=== PATIENT | male | born 1960 | race Caucasian/White ===

== ENCOUNTER → 2024-02-25 10:28 | Outpatient (REF) | payer MEDICARE, SELFPAY | LOC: MRI 3T 10:28 | PROVIDERS: ATTENDING PHYSICIAN Urology; FAMILY PHYSICIAN Nurse Practitioner Family | DX: R97.20 Elevated prostate specific antigen [PSA] (principal) | CPT/HCPCS: 72197; A9575 ==

== ENCOUNTER 2024-08-11 20:57 | Inpatient (IN) | payer MEDICARE, SELFPAY ==
[2024-08-11] VITALS (9 sets, daily range): BP systolic 118–138; BP diastolic 66–81; BMI 27.1
[2024-08-11 16:10] LABS: % Basophils 0.4 % (0-2); % Eosinophils 0.1 % (0-6); % Immature Granulocytes 0.5 % (0-0.5); % Lymphocytes 8.3 % (20.5-51.1); % Monocytes 4.8 % (1.7-9.3); % Neutrophils 85.9 % (42.2-75.2); Absolute Basophils 0.1 10^3/uL (0-0.2); Absolute Immature Granulocytes 0.1 10^3/uL (0-0.05); Absolute Lymphocytes 1.3 10^3/uL (1.2-3.4); Absolute Monocytes 0.7 10^3/uL (0.1-0.6); Hematocrit 42.6 % (39.0-52.0); Hemoglobin 14.8 g/dL (13.0-18.0); Mean Corp Hgb Conc. 34.7 g/dL (33.0-37.0); Mean Corpuscular Hgb 29.1 pg (27.0-31.0); Mean Corpuscular Volume 83.9 fL (80.0-94.0); Mean Platelet Volume 10.3 fL (7.4-10.4); Nucleated Red Blood Cells % 0 % (-); Platelet Count 271 10^3/uL (130-400); Red Blood Cell Count 5.08 10^6/uL (4.70-6.10); Red Cell Dist. Width 13.2 % (11.5-14.5); White Blood Cell Count 15.1 10^3/uL (4.8-10.8)
[2024-08-11 16:23] LABS: ALT (SGPT) 24 U/L (0-50); AST (SGOT) 28 U/L (17-59); Albumin 5.3 g/dl (3.5-5.0); Alkaline Phosphatase 105 U/L (38-126); Blood Urea Nitrogen 17 mg/dl (9-20); Calcium 9.7 mg/dl (8.4-10.2); Carbon Dioxide 24 mmol/L (22-30); Chloride 101 mmol/L (98-107); Glucose 99 mg/dl (70-99); Lipase 42 U/L (23-300); Potassium 4.1 mmol/L (3.5-5.1); Sodium 141 mmol/L (135-145); Total Bilirubin 1.5 mg/dl (0.2-1.3); Total Protein 7.7 g/dl (6.3-8.2); eGFR > 60.00
[2024-08-11 16:33] LABS: Troponin I 0.018 ng/ml
[2024-08-11] MEDS: NSS 1000 IV (17:57)
--- NOTE | 2024-08-11 18:12 | ED.GENMED ---
History of Present Illness
<Elliot Mra PA-C - Last Filed: 08/12/24 08:12>
General
Chief Complaint: Fainting/Passed Out
Source: patient
Time Seen by Provider: 08/11/24 17:24
History of Present Illness
History of Present Illness:
64-year-old male with past medical history of hypertension hyperlipidemia presenting to the emergency for evaluation after he had a near syncopal event while he was driving to the post office to drop off his tax return approximately 1 hour prior to
arrival to the ER. Patient states that about 75 minutes prior to the syncopal event he had ran 6 miles which he states he is training for the [employer] a and has been running much more frequently every week, notes he did not have any symptoms
prior to the run. Patient states he did not eat or drink very much prior to his run which is not typical for him. He states that during the syncopal episode he felt as if his vision went dark, became lightheaded with the symptoms lasting for about
30 seconds and then resolving, noting he never lost consciousness. Patient states that during exercise he never has any symptoms including chest pain, shortness of breath, palpitations, diaphoresis or any other concerns. He notes that he has had a
calcium score in the recent past which was unremarkable and reports that he is compliant with all medications. Social history was noted for 3 alcoholic beverages per week.
Past History
<Elliot Mar PA-C - Last Filed: 08/12/24 08:12>
Past History
ED Past Medical History: HTN and Hypercholesterolemia
ED Past Surgical History: Tonsilectomy
Social History
Tobacco: Non-smoker
Alcohol: Occasional
Drug: None
Personal:
Living: with family
Employment: Employed
Review of Systems
<Elliot Mar PA-C - Last Filed: 08/12/24 08:12>
Review of Systems
All Other Systems: ROS reviewed and negative except as documented in HPI and ROS
Phy Exam
<Elliot Mar PA-C - Last Filed: 08/12/24 08:12>
Physical Exam
Physical Exam:
GENERAL: Alert , in no apparent distress
EYE: conjunctiva clear
NECK: Supple
ENT: o/p clr, mmm.
CARDIAC: Regular rate and rhythm
LUNGS: Clear breath sounds bilaterally, no acute respiratory distress, no wheezes/rales/rhonchi
NEUROLOGICAL: Alert and oriented
SKIN: Warm and dry, skin intact.
MUSCULOSKELETAL: well perfused.
PSYCH: Normal and appropriate interaction.
Scores
<Elliot Mar PA-C - Last Filed: 08/12/24 08:12>
Heart Failure Risk
Heart Failure Risk Score: Not Applicable
Heart Score for Chest Pain Patients
STEMI patient?: Not applicable
Withdrawal Assessment of Alcohol
Withdrawal Assessment Completed?: Not applicable
Course
<Elliot Mar PA-C - Last Filed: 08/12/24 08:12>
Orders/Labs/Results
Orders:
Orders
08/11/24 Dinner
Cholesterol Lowering
At Your Request: Full Participation
Cholesterol Lowering: Sodium, 2 Gram
08/11/24 15:34
Electrocardiogram (*1) Urgent
Reason for Study: Chest Pain
EKG- Treatment ONCE
08/11/24 15:53
Complete Blood Count/With Diff Urgent
Comprehensive Metabolic Panel Urgent
Lipase Urgent
Troponin I Urgent
08/11/24 17:39
CR Chest - 2 Views Urgent
Comment:
Reason For Exam: near syncope, chest tightness
08/11/24 17:42
0.9% Sodium Chloride 1000 ml [Nss] 1,000 ml IV BOLUS
08/11/24 18:49
Troponin I Urgent
08/11/24 19:24
Electrocardiogram (*1) Urgent
Reason for Study: Syncope
EKG- Treatment ONCE
08/11/24 19:28
Heparin 4,000 units IV NOW STA
Nursing to Place Non Medication Order As Directed
Physician Order: PTT 6 hours after initial start of Heparin infusion
Above order entered?: Yes
08/11/24 19:30
Heparin 42157 Units/250 ml 25,000 units in 250 ml IV PER PROTOCOL
Weight to be used for heparin protocol in kilograms (kg):: 83
Protocol:: Cardiac Tx/Acute Coronary
PTT Goal Range to be used:: PTT 73 to 111 seconds
Order type:: Initial
INITIAL Infusion Dose (UNITS/KG/hr) & then follow protocol:: 15 units/kg/hr
Infusion Dose in UNITS/hr & then follow protocol (UNITS/hr):: 1,250
INFUSION RATE in mL/hr & then follow protocol (mL/hr):: 12.5
PTT less than or equal to 64 seconds:: Increase rate by 200 units/hr (+ 2 mL/hr)
PTT 64.1 to 72.9 seconds:: Increase rate by 100 units/hr (+ 1 mL/hr)
PTT 73 to 111 seconds:: Target Range. No change in rate.
PTT 111.1 to 130.9 seconds:: Decrease rate by 100 units/hr (- 1 mL/hr)
PTT 131 to 199.9 seconds:: HOLD for 1 hr. Then decrease rate by 200 units/hr (- 2 mL/hr)
PTT greater than or equal to 200 seconds:: HOLD for 2 hrs & Notify Provider. Then decrease by 200 units/hr (-
2 mL/hr)
Lab follow-up:: Each change, PTT q6h until 2 consecutive are therapeutic. Then PTT
daily.
08/11/24 19:46
PTT Urgent
Comment: Obtain baseline before beginning heparin infusion if not already collected
08/11/24 20:42
Admit/Transfer Patient As Directed
Co-Sign Provider:
Level of Care: Inpatient admission
Assign to:: Telemetry
Physician / Group: hospitalist
Diagnosis: NSTEMI
Reason for Telemetry: Chest Pain syndromes
Date to Stop Telemetry: 08/13/24
Time to Stop Telemetry: 11:00
Reason for Hospitalization: NSTEMI
Expected length of stay greater than two midnights?: Yes
ELOS- Estimated Length of Stay in days: 2
I certify the patient meets the requirements for IP care: Yes
PRN Pain Medication Management As Directed
May give lesser potent ordered pain med per pt: Yes
preference::
Protocol:: Medication orders for pain may be administered in a
manner that supports deferring to patient preference
when the pt is:
- Requesting an ordered lesser potent pain medication.
Least to most potent pain medications are defined
as: acetaminophen < NSAID < tramadol < opioids
(morphine, oxycodone, hydromorphone).
- Requesting a lesser dose of the same medication IF
ORDERED.
- Requesting a less intrusive route of administration
if both routes are prescribed by the provider (PO <
IV).
08/11/24 20:43
Code Status As Directed
Resuscitation Status: Full Code
08/11/24 22:03
Acetaminophen [Tylenol] 650 mg PO Q4HPRN PRN
Mag Hydrox/Al Hydrox/Simeth [Maalox] 30 ml PO Q4HPRN PRN
Nitroglycerin Sublingual [Nitrostat (Sublingual)] 0.4 mg SL [id number] PRN
08/11/24 22:03
Echo 2D MMode Color/Doppler Routine
Reason for Study: chest pain
CARDIOLOGY CONSULT Routine
Consulting Provider: Juan Villarreal
Was physician already notified: Yes
VTE Contraindication Routine
VTE Mechanical Device Contraindication: Medical Contraindication
Pharmocologic Contraindication: Medical Contraindication
Heparin Protocol- PTT Orders As Directed
PTT per Heparin protocol: -Obtain CBC and baseline PTT - if not already collected.
-Obtain PTT 6 hours from start of infusion. Then, every 6 hours until 2 consecutive
PTT's are therapeutic. Then, PTT Daily.
-With each rate change, obtain PTT every 6 hours until 2 consecutive PTT's are
therapeutic. Then, PTT Daily.
Activity As Directed
Activity Level: With Assistance
INT (Intravenous Needle Therapy) As Directed
Comment: maintain peripheral IV access
Intake/ Output As Directed
Frequency: Per unit guidelines
Notify MD As Directed
Notify physician if: PTT is greater than or equal to 200.
Vital Signs As Directed
Frequency: q4h
Weight As Directed
Frequency: Once
Pulse Ox/spot Check [RESP] Routine
Quantity: 1
Special Instructions: on admission and then every shift if on oxygen
08/11/24 23:03
Troponin I Q3H
Comment: at admit & Q3H for 3 total including ED draws, obtain ECG with each level
08/12/24 03:07
Glycohemoglobin (HgbA1c) IN AM
Troponin I Q3H
Comment: at admit & Q3H for 3 total including ED draws, obtain ECG with each level
08/12/24 03:08
Cardiovascular Evaluation IN AM
PTT Urgent
08/12/24 Breakfast
NPO
Allow oral meds: Yes
Allow clear liquids: Sips of Clears
08/12/24 08:00
Aspirin Chewable [Low Strength Aspirin] 81 mg PO DAILY
Losartan [Cozaar] 100 mg PO DAILY
08/12/24 18:00
Rosuvastatin Calcium [Crestor] 10 mg PO QPM
08/13/24 06:00
Complete Blood Count/No Diff Q2D
Comment: notify provider: Platelet count < 130,000 or decrease by 50% from baseline
08/13/24 11:00
DC Protocol for Telemetry ONCE
08/15/24 06:00
Complete Blood Count/No Diff Q2D
Comment: notify provider: Platelet count < 130,000 or decrease by 50% from baseline
08/17/24 06:00
Complete Blood Count/No Diff Q2D
Comment: notify provider: Platelet count < 130,000 or decrease by 50% from baseline
08/19/24 06:00
Complete Blood Count/No Diff Q2D
Comment: notify provider: Platelet count < 130,000 or decrease by 50% from baseline
08/21/24 06:00
Complete Blood Count/No Diff Q2D
Comment: notify provider: Platelet count < 130,000 or decrease by 50% from baseline
08/23/24 06:00
Complete Blood Count/No Diff Q2D
Comment: notify provider: Platelet count < 130,000 or decrease by 50% from baseline
08/25/24 06:00
Complete Blood Count/No Diff Q2D
Comment: notify provider: Platelet count < 130,000 or decrease by 50% from baseline
08/27/24 06:00
Complete Blood Count/No Diff Q2D
Comment: notify provider: Platelet count < 130,000 or decrease by 50% from baseline
Abnormal Lab Results
08/11/24 08/11/24
15:53 18:49
WBC 15.1 H 10^3/uL
(4.8-10.8)
Abs Immat Gran (auto) 0.1 H 10^3/uL
(0-0.05)
Absolute Neuts (auto) 13.0 H 10^3/uL
(1.4-6.5)
Absolute Monos (auto) 0.7 H 10^3/uL
(0.1-0.6)
Neutrophils % 85.9 H %
(42.2-75.2)
Lymphocytes % 8.3 L %
(20.5-51.1)
Total Bilirubin 1.5 H mg/dl
(0.2-1.3)
Troponin I 0.069 H* D ng/ml
Albumin 5.3 H g/dl
(3.5-5.0)
08/11/24 15:53
08/11/24 15:53
Vital Signs
Initial and Last Documented VS:
Initial Vital Signs
Temp Pulse Resp BP Pulse Ox
98.0 F 114 16 126/81 99
08/11/24 15:39 08/11/24 15:39 08/11/24 15:39 08/11/24 15:39 08/11/24 15:39
Last Documented Vital Signs
Temp Pulse Resp BP Pulse Ox
98.4 F 69 20 126/89 98
08/12/24 07:46 08/12/24 07:55 08/12/24 07:46 08/12/24 07:55 08/12/24 07:46
<Brian Sanders, DO - Last Filed: 08/11/24 19:34>
Orders/Labs/Results
Orders:
Orders
08/11/24 Dinner
Cholesterol Lowering
At Your Request: Full Participation
Cholesterol Lowering: Sodium, 2 Gram
08/11/24 15:34
Electrocardiogram (*1) Urgent
Reason for Study: Chest Pain
EKG- Treatment ONCE
08/11/24 15:53
Complete Blood Count/With Diff Urgent
Comprehensive Metabolic Panel Urgent
Lipase Urgent
Troponin I Urgent
08/11/24 17:39
CR Chest - 2 Views Urgent
Comment:
Reason For Exam: near syncope, chest tightness
08/11/24 17:42
0.9% Sodium Chloride 1000 ml [Nss] 1,000 ml IV BOLUS
08/11/24 18:49
Troponin I Urgent
08/11/24 19:24
Electrocardiogram (*1) Urgent
Reason for Study: Syncope
EKG- Treatment ONCE
08/11/24 19:28
Heparin 4,000 units IV NOW STA
Nursing to Place Non Medication Order As Directed
Physician Order: PTT 6 hours after initial start of Heparin infusion
Above order entered?: Yes
08/11/24 19:30
Heparin [id number] Units/250 ml 25,000 units in 250 ml IV PER PROTOCOL
Weight to be used for heparin protocol in kilograms (kg):: 83
Protocol:: Cardiac Tx/Acute Coronary
PTT Goal Range to be used:: PTT 73 to 111 seconds
Order type:: Initial
INITIAL Infusion Dose (UNITS/KG/hr) & then follow protocol:: 15 units/kg/hr
Infusion Dose in UNITS/hr & then follow protocol (UNITS/hr):: 1,250
INFUSION RATE in mL/hr & then follow protocol (mL/hr):: 12.5
PTT less than or equal to 64 seconds:: Increase rate by 200 units/hr (+ 2 mL/hr)
PTT 64.1 to 72.9 seconds:: Increase rate by 100 units/hr (+ 1 mL/hr)
PTT 73 to 111 seconds:: Target Range. No change in rate.
PTT 111.1 to 130.9 seconds:: Decrease rate by 100 units/hr (- 1 mL/hr)
PTT 131 to 199.9 seconds:: HOLD for 1 hr. Then decrease rate by 200 units/hr (- 2 mL/hr)
PTT greater than or equal to 200 seconds:: HOLD for 2 hrs & Notify Provider. Then decrease by 200 units/hr (-
2 mL/hr)
Lab follow-up:: Each change, PTT q6h until 2 consecutive are therapeutic. Then PTT
daily.
08/11/24 19:46
PTT Urgent
Comment: Obtain baseline before beginning heparin infusion if not already collected
08/11/24 20:42
Admit/Transfer Patient As Directed
Co-Sign Provider:
Level of Care: Inpatient admission
Assign to:: Telemetry
Physician / Group: hospitalist
Diagnosis: NSTEMI
Reason for Telemetry: Chest Pain syndromes
Date to Stop Telemetry: 08/13/24
Time to Stop Telemetry: 11:00
Reason for Hospitalization: NSTEMI
Expected length of stay greater than two midnights?: Yes
ELOS- Estimated Length of Stay in days: 2
I certify the patient meets the requirements for IP care: Yes
PRN Pain Medication Management As Directed
May give lesser potent ordered pain med per pt: Yes
preference::
Protocol:: Medication orders for pain may be administered in a
manner that supports deferring to patient preference
when the pt is:
- Requesting an ordered lesser potent pain medication.
Least to most potent pain medications are defined
as: acetaminophen < NSAID < tramadol < opioids
(morphine, oxycodone, hydromorphone).
- Requesting a lesser dose of the same medication IF
ORDERED.
- Requesting a less intrusive route of administration
if both routes are prescribed by the provider (PO <
IV).
08/11/24 20:43
Code Status As Directed
Resuscitation Status: Full Code
08/11/24 22:03
Acetaminophen [Tylenol] 650 mg PO Q4HPRN PRN
Mag Hydrox/Al Hydrox/Simeth [Maalox] 30 ml PO Q4HPRN PRN
Nitroglycerin Sublingual [Nitrostat (Sublingual)] 0.4 mg SL [id number] PRN
08/11/24 22:03
Echo 2D MMode Color/Doppler Routine
Reason for Study: chest pain
CARDIOLOGY CONSULT Routine
Consulting Provider: Juan Villarreal
Was physician already notified: Yes
VTE Contraindication Routine
VTE Mechanical Device Contraindication: Medical Contraindication
Pharmocologic Contraindication: Medical Contraindication
Heparin Protocol- PTT Orders As Directed
PTT per Heparin protocol: -Obtain CBC and baseline PTT - if not already collected.
-Obtain PTT 6 hours from start of infusion. Then, every 6 hours until 2 consecutive
PTT's are therapeutic. Then, PTT Daily.
-With each rate change, obtain PTT every 6 hours until 2 consecutive PTT's are
therapeutic. Then, PTT Daily.
Activity As Directed
Activity Level: With Assistance
INT (Intravenous Needle Therapy) As Directed
Comment: maintain peripheral IV access
Intake/ Output As Directed
Frequency: Per unit guidelines
Notify MD As Directed
Notify physician if: PTT is greater than or equal to 200.
Vital Signs As Directed
Frequency: q4h
Weight As Directed
Frequency: Once
Pulse Ox/spot Check [RESP] Routine
Quantity: 1
Special Instructions: on admission and then every shift if on oxygen
08/11/24 23:03
Troponin I Q3H
Comment: at admit & Q3H for 3 total including ED draws, obtain ECG with each level
08/12/24 03:07
Glycohemoglobin (HgbA1c) IN AM
Troponin I Q3H
Comment: at admit & Q3H for 3 total including ED draws, obtain ECG with each level
08/12/24 03:08
Cardiovascular Evaluation IN AM
PTT Urgent
08/12/24 Breakfast
NPO
Allow oral meds: Yes
Allow clear liquids: Sips of Clears
08/12/24 08:00
Aspirin Chewable [Low Strength Aspirin] 81 mg PO DAILY
Losartan [Cozaar] 100 mg PO DAILY
08/12/24 18:00
Rosuvastatin Calcium [Crestor] 10 mg PO QPM
08/13/24 06:00
Complete Blood Count/No Diff Q2D
Comment: notify provider: Platelet count < 130,000 or decrease by 50% from baseline
08/13/24 11:00
DC Protocol for Telemetry ONCE
08/15/24 06:00
Complete Blood Count/No Diff Q2D
Comment: notify provider: Platelet count < 130,000 or decrease by 50% from baseline
08/17/24 06:00
Complete Blood Count/No Diff Q2D
Comment: notify provider: Platelet count < 130,000 or decrease by 50% from baseline
08/19/24 06:00
Complete Blood Count/No Diff Q2D
Comment: notify provider: Platelet count < 130,000 or decrease by 50% from baseline
08/21/24 06:00
Complete Blood Count/No Diff Q2D
Comment: notify provider: Platelet count < 130,000 or decrease by 50% from baseline
08/23/24 06:00
Complete Blood Count/No Diff Q2D
Comment: notify provider: Platelet count < 130,000 or decrease by 50% from baseline
08/25/24 06:00
Complete Blood Count/No Diff Q2D
Comment: notify provider: Platelet count < 130,000 or decrease by 50% from baseline
08/27/24 06:00
Complete Blood Count/No Diff Q2D
Comment: notify provider: Platelet count < 130,000 or decrease by 50% from baseline
Abnormal Lab Results
08/11/24 08/11/24
15:53 18:49
WBC 15.1 H 10^3/uL
(4.8-10.8)
Abs Immat Gran (auto) 0.1 H 10^3/uL
(0-0.05)
Absolute Neuts (auto) 13.0 H 10^3/uL
(1.4-6.5)
Absolute Monos (auto) 0.7 H 10^3/uL
(0.1-0.6)
Neutrophils % 85.9 H %
(42.2-75.2)
Lymphocytes % 8.3 L %
(20.5-51.1)
Total Bilirubin 1.5 H mg/dl
(0.2-1.3)
Troponin I 0.069 H* D ng/ml
Albumin 5.3 H g/dl
(3.5-5.0)
08/11/24 15:53
08/11/24 15:53
Vital Signs
Initial and Last Documented VS:
Initial Vital Signs
Temp Pulse Resp BP Pulse Ox
98.0 F 114 16 126/81 99
08/11/24 15:39 08/11/24 15:39 08/11/24 15:39 08/11/24 15:39 08/11/24 15:39
Last Documented Vital Signs
Temp Pulse Resp BP Pulse Ox
98.4 F 69 20 126/89 98
08/12/24 07:46 08/12/24 07:55 08/12/24 07:46 08/12/24 07:55 08/12/24 07:46
<Elliot Mar PA-C - Last Filed: 08/12/24 08:12>
MDM/Problems Addressed
Differential Diagnosis Includes:
Orthostasis, vagal event, cardiac dysrhythmia, atypical ACS presentation, seizure, hypoglycemia, electrolyte derangement
MDM/Problems Addressed:
64-year-old male presenting the ER for evaluation following a near syncopal event that occurred approximately 75 minutes after exercising, asymptomatic at time of arrival. Patient tachycardic in triage however throughout the entirety of my exam
patient's heart rate is well within the low 80s. Patient exam otherwise unremarkable. Labs do reveal a mild leukocytosis which at this time is of unknown significance. Initial troponin is within normal limits at 0.018 which I attribute to likely
recent exercise. Will repeat a 3-hour troponin. Chest x-ray ordered. Will treat with 1 L of fluids. I suspect symptoms are most likely related to vagal events/orthostasis. Anticipate discharge home pending patient remaining stable and repeat
troponin/EKG.
<Elliot Mar PA-C - Last Filed: 08/12/24 08:12>
*Radiology
Radiology exam reviewed: preliminary read by ED provider (Normal chest x-ray)
*Pulse Oximetry
Patient hypoxic: no
*EKG
Heart Rate: 96
Rate: normal
Rhythm: sinus
QRS Pattern: right bundle branch block
Ischemia: no ischemia
*Methods Analyst Interpretation
Rate: normal
Rhythm: sinus
*Critical Care Note
Total Time (30-74mins, 75-104mins- exclusive of procedures): Not Applicable
<Elliot Mar PA-C - Last Filed: 08/12/24 08:12>
Patient Management
Discussion with other providers: Hospitalist and Farm Agent
Escalation/DeEscalation of care consider admission/obs:
Patient's repeat troponin came back slightly elevated at 0.069. He remains asymptomatic and reports he is chest pain free. Given his upward trending troponin I did reach out to cardiology, Dr. Villarreal, and we ultimately decided to initiate
patient on heparin with plan to have cardiology evaluate in AM. Patient states that gave him a full dose ASA prior to arrival. Hospitalist team accepts for continued evaluation and treatment. Patient to be n.p.o. after midnight for further
testing tomorrow morning.
ED Attending Note
<Elliot Mar PA-C - Last Filed: 08/12/24 08:12>
-
Portions of this chart may have been created with voice recognition software.� Occasional wrong word or��sound alike� substitutions may have occurred due to the inherent limitations of voice recognition software.
<Brian Sanders, DO - Last Filed: 08/11/24 19:34>
ED Attending Note
Patient seen and examined by attending physician: Yes
I performed the substantive portion of visit, reviewed & personally made and approve the management plan that is documented in note by myself or DOMINIQUE.: Yes
ED Attending Note:
I evaluated the patient at bedside. The patient had a near syncopal event while driving. He had no chest pain while on a 6 mile run earlier today. After the near syncopal event, he has been having some chest discomfort and troponin has been
rising here. Leukocytosis noted of uncertain clinical significance. EKG shows incomplete right bundle branch block with borderline ST depression in V3 V4
Discharge Plan
Departure
Patient Disposition: Admit
Date of Disposition: 08/11/24
Time of Disposition: 19:29
Presentation/result/management discussed w/ accepting MD/DO: Hospitalist
Discharge Problem:
Acute non-ST elevation myocardial infarction (NSTEMI), Near syncope
Interventions
Interventions:
*Risk Screen - Suicide Last Done: 08/11/24 15:39
*General Assessment Last Done: 08/11/24 15:39
*Neglect/Abuse Screening Last Done: 08/11/24 15:39
*ED- Fall Risk Assessment Last Done: 08/11/24 17:39
*ED COVID-19 Vaccine History Last Done: 08/11/24 15:39
*Nursing Disposition Last Done: 08/11/24 22:15
ED- Cardiac Assessment Last Done: 08/11/24 17:39
ED- Neurological Assessment Last Done: 08/11/24 17:39
Discharge Date and Time
Discharge Date/Time: 08/11/24 22:16
[2024-08-11 19:24] LABS: Troponin I 0.069 ng/ml
[2024-08-11] MEDS: HEPARIN 4000 UNITS IV (19:53)
[2024-08-11] MEDS: HEPARIN 25000 UNITS/250 ML IV (19:53)
[2024-08-11 20:09] LABS: APTT 29.4 Sec (23.4-35.0)
--- NOTE | 2024-08-11 20:17 | HPS.HSE ---
Family Physician
-
Family Physician: Marisol Alcala NP
Chief Complaint
-
Syncopal episode
History of Present Illness
This is a 64-year-old male with past medical history of hypertension, hyperlipidemia presenting to the emergency department with syncopal episode.
Patient reports training for a 10 mile run over the last 7 weeks. He had a run of about 1 hour today at a 12-minute mile pace. After the run patient felt well. He noted that he did not have breakfast. He drank water and had some nausea. While
he was driving to perform some errands he started noticing lightheadedness and blurry vision. He reported there was a narrowing of his visual johnston bilaterally and he had to stop the. At this time he felt chest tightening. When the spouse
arrived 15 minutes later she saw that he was hyperventilating and appeared pale. They brought him to the emergency department thereafter. The patient reports that by the time he arrived in the emergency department the chest tightness has resolved.
He reports intermittent episodes of palpitations in the last few weeks. Denies any prior history of CAD. He had recently been started on rosuvastatin about 8 weeks ago. He has been on losartan for a longer period of time with the recent increase
in dose to 100 mg daily. He denies orthostatic symptoms.
In the emergency department he was afebrile, blood pressure 122/86 with a pulse of 68 and was satting 100% on room air. ECG shows a normal sinus rhythm with rate of 86. Initial troponin was 0.018, repeat troponin was elevated to 0.069.
Chest x-ray was clear.
CBC shows a white count of 15 but otherwise unremarked. Electrolytes BUN/creatinine were normal.
Medical History
Past Medical History
Past Medical History: Reports HTN and Hypercholesterolemia
Past Surgical History: Reports Tonsilectomy
Social History
Tobacco: Non-smoker
Alcohol: None
Drug: None
Personal:
Living: With Family
Employment: Employed
Family History
Family History: Not pertinent
Allergies / Home Medications
Allergies reflects when Allergies were last updated in [facility].
Home Medications with original date entered in [facility]
Allergy/Medication List:
Allergies
Allergy/AdvReac Type Severity Reaction Status Date / Time
Cephalosporins Allergy Unknown Verified 08/11/24 15:46
Home Medications
aspirin 325 mg tablet 325 mg PO DAILYPRN PRN chest pain 08/11/24
losartan 100 mg tablet 100 mg PO DAILY 08/11/24
rosuvastatin 10 mg tablet 10 mg PO QPM 08/11/24
Review of Systems
-
History Source: Patient
Constitutional: Reports No Symptoms
EENT: Reports No Symptoms
Cardiac: Reports Chest Pain and Palpitations
Abdomen/GI: Reports No Symptoms
: Reports No Symptoms
Musculoskeletal: Reports No Symptoms
Skin: Reports No Symptoms
Neurological: Reports No Symptoms
Endocrine: Reports No Symptoms
Hematologic/Lymphatic: Reports No Symptoms
Psych: Reports No Symptoms
Physical Exam
Vital Signs
Vital Signs
Temp Pulse Resp BP Pulse Ox
98.0 F 68 15 122/66 100
08/11/24 15:39 08/11/24 19:15 08/11/24 19:15 08/11/24 19:00 08/11/24 19:15
Physical Exam
General: Well Developed, Well Nourished, No Apparent Distress, Comfortable and Conversant
HEENT: NormoCephalic, Anicteric, Moist mucous membranes and Atraumatic
Respiratory: Clear
Cardiac: S1/S2 and Regular Rhythm
Breast: Deferred by me
GI: Soft, Non Tender, Non Distended and Normal Bowel Sounds
Rectal: Deferred by Provider
Genito-urinary: Deferred by me
Musculoskeletal: No Clubbing and No Edema
Skin: Warm
Neuro: AO x 3 and Nonfocal/grossly intact
Hematologic/Lymphatic: No Lymphadenopathy
Laboratory Results
-
08/11/24 15:53
08/11/24 15:53
Laboratory Results
APTT 29.4 Sec (23.4-35.0) 08/11/24 19:46
Total Bilirubin 1.5 mg/dl (0.2-1.3) H 08/11/24 15:53
AST 28 U/L (17-59) 08/11/24 15:53
ALT 24 U/L (0-50) 08/11/24 15:53
Alkaline Phosphatase 105 U/L (38-126) 08/11/24 15:53
Troponin I 0.069 ng/ml H* D 08/11/24 18:49
Lipase 42 U/L (23-300) 08/11/24 15:53
Data Reviewed
-
Diagnostic Radiology: Image Personally Visualized and interpreted
Medical Tests (Nuc Med, Echo, EKG etc): Image Personally Visualized and interpreted
Lab Data: Labs Reviewed by me
Old Records: Reviewed
Impression/Plan
-
IMPRESSION:
64-year-old with presyncopal episode. Weakness loss of consciousness. There was an associated hyperventilation and chest tightness. On arrival in the emergency department he did have elevated troponin to 0.018 on repeat was 0.069. ECG shows a
normal sinus rhythm without acute ST or T wave changes. Chest x-ray was clear. Patient has a family history of father with [place] at age 53. Concern is for NSTEMI status post possibly acute nonsustained arrhythmia. Current chest pain free and
hemodynamically stable.
PLAN:
1. NSTEMI
- admit to telemetry
- asa started
- continue statin
- heparin gtt acs protocol
- continue losartan
- NPO after midnight
- lipid panel, a1c, echo
- cardiology consulted
DVT PPX - on heparin gtt
Code status - Full Code
[2024-08-11 23:40] LABS: Troponin I 0.084 ng/ml
[2024-08-12] VITALS (16 sets, daily range): BP systolic 100–143; BP diastolic 53–89; PULSE 64–76
[2024-08-12 00:24] LABS: Hepatitis C Antibody Negative (Negative)
--- NOTE | 2024-08-12 01:43 | PTCARENOTE ---
Pt rec'd as new admit from ED awake,alert in no distress. Heparin gtt infusing at 1250 units/hr. SD education booklet given. Pt aware of npo status after mn for probable cath in am. Sinus on telemetry. Pt aware to call if CP or vision issues
reoccur. call duque within reach.
--- NOTE | 2024-08-12 03:11 | PTCARENOTE ---
Pt remains pain free at this time.
[2024-08-12 04:36] LABS: Blood Urea Nitrogen 14 mg/dl (9-20); Carbon Dioxide 26 mmol/L (22-30); Chloride 107 mmol/L (98-107); Estimated Creatinine Clearance 88 ml/min; Glucose 87 mg/dl (70-99); HDL Cholesterol 53 mg/dl; LDL Cholesterol, Calculated 41 mg/dl; Potassium 3.8 mmol/L (3.5-5.1); Sodium 140 mmol/L (135-145); Total Cholesterol 105 mg/dl (50-199); Triglyceride 56 mg/dl (10-149); Very Low Density Lipoprotein 11 mg/dl (0-30); eGFR > 60.00
[2024-08-12 05:01] LABS: Troponin I 0.077 ng/ml
[2024-08-12 08:08] LABS: ALT (SGPT) 19 U/L (0-50); AST (SGOT) 24 U/L (17-59); Albumin 3.8 g/dl (3.5-5.0); Alkaline Phosphatase 81 U/L (38-126); Creatine Phosphokinase 165 U/L (55-170); Direct Bilirubin 0.2 mg/dl (0.0-0.4); Total Bilirubin 1.2 mg/dl (0.2-1.3); Total Protein 5.9 g/dl (6.3-8.2)
[2024-08-12] MEDS: COZAAR 100 MG PO (08:08)
[2024-08-12] MEDS: LOW STRENGTH ASPIRIN 81 MG PO (08:09)
--- NOTE | 2024-08-12 08:21 | CON.CAR ---
Consultation
Consultation Request
Date/Time Consultation Requested: August 11 10 PM
Date/Time Consultation Performed: August 12 7:30 AM
Requesting Provider: Hospitalist
Performing Provider: Juan Villarreal
Reason for Consultation: Elevated troponin
Medical History
-
Chief Complaint: Near syncope
History of Present Illness:
64-year-old male with past medical history of hypertension and dyslipidemia who is here after near syncopal episode. He tells me that he has been training for the [employer]. Yesterday, he did a 6 mile run and had no problems completing this.
However, afterwards he was in his car and felt lightheaded and as if he was going to pass out. He denies any loss of consciousness. However, he also had central chest tightness that felt like a knot as well as significant shortness of breath.
For this reason he came to the emergency room. Additionally, he has noticed that over the last couple of months he has had on and off palpitations. He has never had any other syncope episodes, no symptoms of chest pain, or other symptoms of
arrhythmia, ischemia, or heart failure.
Past Medical History
Past Medical History: HTN and Hypercholesterolemia
Past Surgical History: Other (Tonsillectomy)
Social History
Tobacco: Non-Smoker
Alcohol: None
Drug: None
Personal:
Living: With Family
Employment: Retired
Family History
Family History: Reviewed & Not Pertinent
Allergies / Home Medications
Allergy/AdvReac Type Severity Reaction Status Date / Time
Cephalosporins Allergy Unknown Verified 08/11/24 15:46
�Medication �Instructions �Recorded �Confirmed �Type
aspirin 325 mg tablet 325 mg PO DAILYPRN PRN chest pain 08/11/24 08/11/24 History
losartan 100 mg tablet 100 mg PO DAILY 08/11/24 08/11/24 History
rosuvastatin 10 mg tablet 10 mg PO QPM 08/11/24 08/11/24 History
Review of Systems
-
All other systems: Negative unless noted
Physical Exam
Vital Signs
Temp Pulse Resp BP Pulse Ox
98.4 F 69 20 126/89 98
08/12/24 07:46 08/12/24 07:55 08/12/24 07:46 08/12/24 07:55 08/12/24 07:46
Lab Results
08/12/24 03:08
Troponin I 0.077 ng/ml H* 08/12/24 03:07
Physical Exam
General: Well Developed, Well Nourished and No Apparent Distress
HEENT: Normocephalic and Anicteric
Respiratory: Clear and Non Labored Respirations
Cardiac: S1/S2 and Regular Rhythm
GI: Soft and Normal Bowel Sounds
Musculoskeletal: No Cyanosis and No Edema
Skin: Warm
Neuro: AO x 3
Hematologic/Lymphatic: No Lymphadenopathy
Psych: Calm
Impression / Plan
-
A/P: 64-year-old male with history of hypertension and dyslipidemia who is here after near syncopal episode. He did have central chest tightness described as a knot in his chest as well as shortness of breath and elevated troponin. Given this
occurred relatively shortly after completing a run, ischemia is possible with a possible arrhythmia including VT. Thus, we discussed coronary angiography which she is agreeable to.
Possible NSTEMI with elevated troponin
- Heparin drip aspirin given
- Coronary angiography today
- Echocardiogram
- Continue statin
Hypertension
- Continue losartan
Dyslipidemia
- Continue rosuvastatin LDL at goal
Data Reviewed
-
EKG: Tracing Personally Visualized and interpreted (sr)
Labs: Labs Reviewed by me
--- NOTE | 2024-08-12 08:41 | W.PN.HOSP.TC ---
Today's Communication/Plan
-
see PN
Assessment / Plan
Assessment / Plan
64yo M with HTN and HLD came with episode of fainting, when his vision darkened while he was driving car. No syncope happened since raj was able to stop it during episode and remembers it entuirely. He described it as he rapidly stood up from
stitting position. ALso some palpitations over past 6 weeks which were uusual. Patient has chest pressure after the epsode, lasting minted, substernal and non-radiating. Mangaged for ACS without ST elevation
A/P:
#NSTEMI
Heparin drip
ASA, statin, BB
cardiology for cath
Echo
LDL WNL
check HgbA1c and TSH
#Pre-Syncope
Telemetry without siignificant arrhythmia
check ortho VS
check DDImer with Wells score of 0
#Leukocytosis
stress induced likely
no fever and no symptoms of infection
Chest XR without consilodation
FOllow WBC
#Essential HTN
#HLD
cont home meds
DVT ppx heprin
full code
I have spent at least 56min reviewing the chart, test results, communication with consultants and providing direct patient care
Anticipated Discharge: 24 - 48 hours
Subjective/Interval History
-
Date of Service: August 12, 2024
Objective Data
-
Labs:
Laboratory Results
08/12/24 08/12/24 08/12/24
03:08 07:05 10:30
WBC Pending
Hgb Pending
Hct Pending
Plt Count Pending
APTT 95.0 H Pending
Sodium 140
Potassium 3.8
Chloride 107
Carbon Dioxide 26
BUN 14
Creatinine 0.8
Glucose 87
Calcium 9.0
Total Bilirubin 1.2
AST 24
ALT 19
Alkaline Phosphatase 81
Vital Signs:
Vital Signs
Temp Pulse Resp BP Pulse Ox
98.4 F 69 20 126/89 98
08/12/24 07:46 08/12/24 07:55 08/12/24 07:46 08/12/24 07:55 08/12/24 07:46
Review of Systems
-
History Source: Patient
All other systems: Reviewed and negative
Physical Exam
-
General: No Apparent Distress
HEENT: Normocephalic
Respiratory: Clear to Auscultation
Cardiac: Regular Rhythm
Neuro: Awake, Alert, Oriented and AO x 3
Psych: Calm
[2024-08-12 08:59] LABS: TSH Reflex To Free T4 4.28 uIU/ml (0.47-4.68)
[2024-08-12 09:01] LABS: % Basophils 0.5 % (0-2); % Eosinophils 0.8 % (0-6); % Immature Granulocytes 0.3 % (0-0.5); % Lymphocytes 29.6 % (20.5-51.1); % Monocytes 7.3 % (1.7-9.3); % Neutrophils 61.5 % (42.2-75.2); Absolute Basophils 0.1 10^3/uL (0-0.2); Absolute Eosinophils 0.1 10^3/uL (0-0.7); Absolute Lymphocytes 2.7 10^3/uL (1.2-3.4); Absolute Monocytes 0.7 10^3/uL (0.1-0.6); Absolute Neutrophils 5.6 10^3/uL (1.4-6.5); Hematocrit 37.5 % (39.0-52.0); Mean Corp Hgb Conc. 34.7 g/dL (33.0-37.0); Mean Corpuscular Hgb 29.7 pg (27.0-31.0); Mean Corpuscular Volume 85.6 fL (80.0-94.0); Mean Platelet Volume 11.1 fL (7.4-10.4); Nucleated Red Blood Cells % 0 % (-); Platelet Count 248 10^3/uL (130-400); Red Blood Cell Count 4.38 10^6/uL (4.70-6.10); Red Cell Dist. Width 13.2 % (11.5-14.5); Reticulocyte Count 1.2 % (0.4-2.8); White Blood Cell Count 9.2 10^3/uL (4.8-10.8)
[2024-08-12 09:29] LABS: D-Dimer > 0.27 ug/mlFEU (0.00-0.50)
[2024-08-12 10:22] LABS: Glycohemoglobin (HgbA1c) 5.4 % (4.0-5.6)
[2024-08-12 11:24] LABS: APTT 110.7 Sec (23.4-35.0)
[2024-08-12 12:14] LABS: Erythrocyte Sed Rate 8 mm/hour (0-20)
--- NOTE | 2024-08-12 13:01 | PTCARENOTE ---
Report called to the [facility]
[2024-08-12 14:17] LABS: ACT-LR - POC 322 Seconds (116-155)
[2024-08-12 14:35] LABS: ACT-LR - POC 289 Seconds (116-155)
--- NOTE | 2024-08-12 14:46 | ITS.CL.CATH ---
Digital Media Manager - Catheterization
Cardiac Catheterization
Procedure Report:
CARDIAC CATHETERIZATION REPORT
Date of Procedure: 08/12/2024
Referring: Juan Villarreal M.D.
INDICATION: Chest pain, troponin elevation, near syncopal event.
PROCEDURE:
1. Left heart catheterization.
2. Coronary angiography.
3. IVUS of the proximal and mid LAD.
4. Successful IFR of the proximal and mid LAD.
A total of 37 minutes of procedural/moderate sedation was utilized. An independent medical office technologist was present to assist with and help manage the patient's level of consciousness and physiologic status.
ACCESS:
1. 6 Tunisian right rate artery using a modified Seldinger technique.
CATHETERS:
1. 5 Tunisian JR4.
2. 5 Tunisian JL 3.5.
3. 6 Tunisian EBU 3.5 guiding catheter.
HEMODYNAMIC DATA
Weight (kg): 80.7
AO (s/d/x, mmHg): 116/71/90
LV (s/x mmHg): 120/10
LEFT VENTRICULOGRAPHY: Not performed.
CORONARY ANGIOGRAPHY
Dominance: Right.
Left Main: Normal size, bifurcating vessel. There is no coronary artery disease.
LAD: Normal size vessel giving rise to 2 significant diagonals. There is a hazy lucency in the mid LAD, immediately distal to the first diagonal. There are luminal irregularities in the distal LAD.
Ramus: Congenitally absent.
Circumflex: Large size, nondominant vessel giving rise to 1 large obtuse marginal. The obtuse marginal subsequently bifurcates into 2 daughter vessels. There is no coronary artery disease.
RCA: Normal size, dominant vessel with a medium sized posterolateral arcade. There are minor luminal irregularities in the proximal RCA.
INTERVENTION(S)
1. Successful IVUS of the proximal and mid LAD.
2. Successful IFR of the mid LAD lesion, demonstrating nonocclusive disease (IFR = 0.93).
Narrative:
The decision was made to perform intracoronary imaging. The diagnostic catheter was removed over a wire and exchanged for 6 Tunisian EBU 3.5 guiding catheter. The guiding catheter was advanced into the ascending aorta and seated in the left main
coronary artery. Additional heparin was given to obtain an ACT greater than 250 seconds. After crossing the lesion with a coronary wire, an IVUS catheter was advanced through the guiding catheter and into the ostium of the artery. Ring down was
performed once the imaging crystal was no longer inside of the guiding catheter. The IVUS catheter was advanced into the mid LAD, beyond the first diagonal. Intravascular ultrasound was performed in a retrograde fashion using a slow pullback.
Intracoronary imaging demonstrated a generally healthy vessel, though there was discrete atherosclerotic and fibrotic change in the mid LAD, immediately distal to the first diagonal, consistent with the lucency observed on angiography. Minimal
luminal area 4.2 mm�.
Given the IVUS findings, the decision was made to perform physiologic testing. The IVUS catheter was removed, but the power turn flex wire was left in place as a marker. An iFR wire was zeroed outside of the body, then inserted into the guiding
sheath. The wire was advanced and the transducer was normalized just outside of the guiding catheter tip. The wire was advanced into the mid LAD. Three iFR measurements were taken. The lesion was determined to be nonocclusive (0.93).
Final angiography showed no evidence of disruption or dissection. The catheter was disengaged and the wires were removed. The catheter was removed over a standard J-wire.
Closure Device: Vascular band.
Radiation (mGy): 464
DAP (cm2.Gy): 23.102
Fluoroscopy time (minutes): 5.8
CONCLUSIONS
1. Right dominant circulation with luminal irregularities in the proximal RCA and in the distal LAD and a hazy lucency in the mid LAD, immediately distal to the first diagonal concerning for shelflike plaque, found to be a true, nonobstructive
atherosclerotic lesion (IFR = 0.93).
2. Normal filling pressures (LVEDP = 10 mmHg at 80.7 kg).
RECOMMENDATIONS:
1. Expectant management after cardiac catheterization via right radial approach.
2. Limited weight bearing on the right for one week.
3. OMT/GDMT as hemodynamics tolerate.
4. Aggressive primary prevention with high-dose, high potency statin. Increase rosuvastatin to 20 mg daily. Goal LDL <55.
5. Maintain aspirin 81 mg daily.
Copy to: Juan Villarreal M.D., WALE Flynn
Fausto Saavedra DO, FACC, FACP
--- NOTE | 2024-08-12 15:11 | PTCARENOTE ---
Patient received from the laboratory miller. Right radial band CDI, POX 96%, VSS, denies pain. Plan of care reviewed, call duque in reach
[2024-08-12] MEDS: CRESTOR 20 MG PO (18:22)
--- NOTE | 2024-08-12 19:06 | PTCARENOTE ---
TR band removed, dry sterile dressing right wrist
--- NOTE | 2024-08-13 00:03 | PTCARENOTE ---
Pt rec'd at change of shift awake,alert. right radial site intact,good pulse. Sinus on telemetry. At HS pt c/o 'tickle' in in throat. occasionally takes allergy medicines but stated he didnt want to take anything now.
[2024-08-13 05:03] VITALS: BP 115/68
[2024-08-13 05:51] LABS: % Basophils 0.4 % (0-2); % Eosinophils 1.7 % (0-6); % Immature Granulocytes 0.3 % (0-0.5); % Lymphocytes 21.9 % (20.5-51.1); % Monocytes 6.7 % (1.7-9.3); Absolute Eosinophils 0.2 10^3/uL (0-0.7); Absolute Monocytes 0.6 10^3/uL (0.1-0.6); Absolute Neutrophils 6.3 10^3/uL (1.4-6.5); Hematocrit 38.8 % (39.0-52.0); Hemoglobin 13.5 g/dL (13.0-18.0); Mean Corp Hgb Conc. 34.8 g/dL (33.0-37.0); Mean Corpuscular Hgb 29.2 pg (27.0-31.0); Mean Corpuscular Volume 83.8 fL (80.0-94.0); Mean Platelet Volume 10.4 fL (7.4-10.4); Nucleated Red Blood Cells % 0 % (-); Platelet Count 240 10^3/uL (130-400); Red Blood Cell Count 4.63 10^6/uL (4.70-6.10); Red Cell Dist. Width 13.2 % (11.5-14.5); White Blood Cell Count 9.1 10^3/uL (4.8-10.8)
[2024-08-13 06:11] LABS: Blood Urea Nitrogen 14 mg/dl (9-20); Calcium 9.1 mg/dl (8.4-10.2); Carbon Dioxide 21 mmol/L (22-30); Chloride 105 mmol/L (98-107); Estimated Creatinine Clearance 88 ml/min; Glucose 106 mg/dl (70-99); Potassium 3.9 mmol/L (3.5-5.1); Sodium 138 mmol/L (135-145); eGFR > 60.00
[2024-08-13 07:24] VITALS: BP 138/76
[2024-08-13] MEDS: LOW STRENGTH ASPIRIN 81 MG PO (08:36)
[2024-08-13] MEDS: COZAAR 100 MG PO (08:36)
--- NOTE | 2024-08-13 09:05 | W.PN.CD ---
Addendum entered and electronically signed by Joe Fermin MD 08/13/24 10:19:
I saw and examined the patient.
The NEUROLOGY NURSE's note was reviewed and I agree with the note.
Comment:
64-year-old man with hypertension and dyslipidemia who presented for a near syncopal episode and chest pain following a 6 mile run on an empty stomach with not much hydration. He had elevated troponins on arrival (0.018 -> 0.069 -> 0.084 -> 0.077).
He was taken to [facility] yesterday and found to have nonobstructive coronary artery disease. He was maintained on aspirin 81 mg daily and rosuvastatin was increased to 20 mg daily with plan for goal LDL less than 55. He feels completely back to
baseline today. Right radial cath site looks good. Otherwise he has regular rate and rhythm, no murmurs, no edema, and clear lungs. Telemetry reviewed and is notable for asymptomatic atrial tachycardia with HR in the 80s.
In summary, his elevated troponin was likely due to nonischemic myocardial injury after a long run, however we have not ruled out that he had an arrhythmic event leading to his presyncope and chest pain. As above, telemetry is only notable for
asymptomatic atrial tachycardia here. We will plan to do a 2-week monitor as an outpatient. Fortunately, his echocardiogram here is normal. He does not need a beta-salazar at this time based on the information that we have. He should continue
his home losartan 100 mg daily. For his nonobstructive coronary artery disease, rosuvastatin was increased from 10 to 20 mg daily and he will be on a baby aspirin going forward.
Addendum entered and electronically signed by WALE Navarro 08/13/24 09:23:
Clarification: elevated troponin (acute, non-ischemic myocardial injury, but cause unclear)
Original Note:
Today's Communication / Plan
-
-continue ASA and increased statin dosing
-will arrange OP heart monitor
Impression / Plan
-
A/P: 64-year-old male with history of hypertension and dyslipidemia who is here after near syncopal episode. He did have central chest tightness described as a knot in his chest as well as shortness of breath and elevated troponin. Cardiac cath
showed no obstructive coronary disease (see below).
Near-syncope:
-no more symptoms overnight
-echo 08/11/24: Normal biventricular size and systolic function without regional wall motion abnormality. Normal diastolic function. No significant valvular disease.
-will arrange OP heart monitor. Of note, he has reported intermittent palpitations recently. None yesterday with the event.
Abnormal troponin:
-unclear etiology
-cardiac cath: Right dominant circulation with luminal irregularities in the proximal RCA and in the distal LAD and a hazy lucency in the mid LAD, immediately distal to the first diagonal concerning for shelflike plaque, found to be a true,
nonobstructive atherosclerotic lesion (IFR = 0.93). Continue daily ASA and increased dose of Crestor. Right radial cath site stable no hematoma.
-no more chest discomfort
Hypertension
-stable
-Continue losartan
Dyslipidemia
-Crestor dosing increased
Physical Exam
Vital Signs/Labs
Vital Signs
Temp Pulse Resp BP Pulse Ox
97.3 F 61 18 138/76 97
08/13/24 07:20 08/13/24 08:30 08/13/24 07:20 08/13/24 07:24 08/13/24 07:20
08/12/24 08/13/24 08/14/24
06:59 06:59 06:59
Actual Weight 80.7 kg
08/13/24 05:07
08/13/24 05:07
APTT Cancelled 08/13/24 06:00
Triglycerides 56 mg/dl (10-149) 08/12/24 03:08
LDL Cholesterol, Calc 41 mg/dl 08/12/24 03:08
VLDL Cholesterol, Calc 11 mg/dl (0-30) 08/12/24 03:08
HDL Cholesterol 53 mg/dl 08/12/24 03:08
LAB Results
08/11/24 08/11/24 08/11/24
15:53 18:49 23:03
Troponin I 0.018 0.069 H* D 0.084 H*
08/12/24
03:07
Troponin I 0.077 H*
Physical Exam
Constitutional: No acute distress
EENT: Anicteric
Cardiovascular: Rhythm & rate is regular
Respiratory: Respiratory effort normal and Lungs clear to auscul.
GI: Soft, Non tender and Normal bowel sounds
Neuro/Psych: AO x 3
Other: Cath Site (right radial site stable no hematoma)
Data Reviewed
-
Date of Service: August 13, 2024
EKG: Other (SR on tele)
Echo: Report Reviewed by me
Medical Tests (PFT, Pathology etc): Report Reviewed by me (cath)
Labs: Labs Reviewed by me
[2024-08-13 10:45] VITALS: BP 145/84
--- NOTE | 2024-08-13 11:25 | W.PN.HOSP.TC ---
Today's Communication/Plan
-
dc
Assessment / Plan
Assessment / Plan
64yo M with HTN and HLD came with episode of fainting, when his vision darkened while he was driving car. No syncope happened since raj was able to stop it during episode and remembers it entuirely. He described it as he rapidly stood up from
stitting position. ALso some palpitations over past 6 weeks which were uusual. Patient has chest pressure after the epsode, lasting minted, substernal and non-radiating. Mangaged for ACS without ST elevation
A/P:
#NSTEMI
Heparin drip
ASA, statin, BB
cardiology: s/p cath on 08/12/24 with non-obstructive coronary disease, cont ASA and increase rosuvastatin
Echo: Normal biventricular size and systolic function without regional wall motion abnormality
Recommended to refrain from excessive exersising until results of outpatient air sampling and monitoring that will be arranged by cardiology
LDL WNL
HgbA1c and TSH WNL
#Pre-Syncope
Telemetry without significant arrhythmia
check ortho VS
DDImer neg with Wells score of 0, no need in additional imaging with low probability of VTE
#Leukocytosis
stress induced likely
no fever and no symptoms of infection
Chest XR without consolidation
resolved
#Essential HTN
#HLD
cont home meds
DVT ppx heprin
full code
I have spent at least 36min reviewing the chart, test results, communication with consultants and providing direct patient care
Anticipated Discharge: Today
Subjective/Interval History
-
Date of Service: August 13, 2024
Objective Data
-
Labs:
Laboratory Results
08/13/24 08/13/24
05:07 06:00
WBC 9.1
Hgb 13.5
Hct 38.8 L
Plt Count 240
APTT Cancelled
Sodium 138
Potassium 3.9
Chloride 105
Carbon Dioxide 21 L
BUN 14
Creatinine 0.8
Glucose 106 H
Calcium 9.1
Vital Signs:
Vital Signs
Temp Pulse Resp BP Pulse Ox
98.4 F 61 18 138/76 97
08/13/24 11:15 08/13/24 08:30 08/13/24 11:15 08/13/24 07:24 08/13/24 11:15
I&O
08/12/24 08/13/24 08/14/24
06:59 06:59 06:59
Intake Total 480 / 480
Balance 480 / 480
Review of Systems
-
History Source: Patient
All other systems: Reviewed and negative
Constitutional: Reports No Symptoms
Physical Exam
-
General: No Apparent Distress
HEENT: Normocephalic
Respiratory: Clear to Auscultation
Cardiac: Regular Rhythm
GI: Soft, Nontender and Nondistended
Neuro: Awake, Alert, Oriented and AO x 3
Psych: Calm
--- NOTE | 2024-08-13 11:30 | W.DCSUMMARY ---
Addendum entered and electronically signed by Paras Araya MD 08/13/24 12:30:
#Non-obstructive coronary disease
Original Note:
Discharge Summary
Discharge Data
Date of Admission: 08/11/24
Date of Discharge: 08/13/24
-
Pending Results: No
Hospital Course
64yo M with HTN and HLD came with episode of fainting, when his vision darkened while he was driving car. No syncope happened since ghe was able to stop it during episode and remembers it entuirely. He described it as he rapidly stood up from
stitting position. ALso some palpitations over past 6 weeks which were uusual. Patient has chest pressure after the epsode, lasting minted, substernal and non-radiating. Mangaged for ACS without ST elevation.s/p cath on 08/12/24 with non-obstructive
coronary disease, cont ASA and increase rosuvastatin. Recommended to refrain from excessive exersising until results of outpatient machine trimmer that will be arranged by cardiology. Medically stable for d/c home
I have spent at least 36min reviewing the chart, test results, communication with consultants and providing direct patient care
Patient was managed for:
#NSTEMI
#Pre-Syncope
#Leukocytosis
#Essential HTN
#HLD
Discharge Plan
-
Patient Disposition: Home (Routine Discharge)
Discharge Diagnosis/Procedures: Cardiac cath
Diet: Low Cholesterol
Driving Restrictions: No driving for 24 hours
Others Tests: Heart monitor- cardiology office will call to arrange
Stand Alone Forms: DC Instructions- Cath/EP Lab
Referrals:
Taniya Sanabria CRNP [Specified Professional Personl] - 09/01/24 10:00 am (Cardiology follow up appointment)
Marisol Alclaa NP [Family Provider] -
Additional Discharge Medication Instructions: Increase Rosuvastatin to 20mg daily
Prescriptions:
New
aspirin 81 mg Tablet,Chewable
81 mg PO DAILY Qty: 30 0RF
rosuvastatin 20 mg Tablet
20 mg PO QPM Qty: 30 0RF
Continued
losartan 100 mg Tablet
100 mg PO DAILY
Discontinued
aspirin 325 mg Tablet
325 mg PO DAILYPRN PRN (Reason: chest pain)
rosuvastatin 10 mg Tablet
10 mg PO QPM
Discharge Orders:
Discharge Patient (As Directed); Ordered 08/13/24
Ordered By: Paras Araya
Care Plan Goals
Care Plan Goals:
Problem: Readiness for enhanced knowledge related to diagnosis and treatment plan
Goal: Understand your diagnosis and treatment plan needs, including medications if applicable.
Instructions: Know your diagnosis, underlying causes and treatment plan options, including medications if applicable. Consult with your health care team to learn about your diagnosis and treatment plan, including medications if applicable.
Discharge Date and Time
Print Language: PORTUGUESE
--- NOTE | 2024-08-13 12:03 | PN.CDI ---
CDI
- -
CDI:
Physician Documentation Request
Admit Date: 08/11/24 20:57
Dear Doctor Quiana,
Clinical Indicators:
Patient admitted with near syncope.
08/12 lab intern report, 'hazy lucency in the mid LAD...found to be a true, nonobstructive atherosclerotic lesion (IFR = 0.93)'
08/13 Cardiology PN, 'his elevated troponin was likely due to nonischemic myocardial injury after a long run...'
08/13 Discharge Summary, 'Mangaged for ACS without ST elevation...NSTEMI'
Troponin trend
08/11/24 08/11/24 08/11/24
15:53 18:49 23:03
Troponin I 0.018 0.069 H* D 0.084 H*
Due to potentially conflicting documentation, could you clarify in the progress notes, the etiology of the troponin elevation:
Non ischemic myocardial injury
N STEMI (documentation complete)
Other, please specify
Use of terms such as suspected, likely, concern for, or probable (associated with a specific diagnosis that is being evaluated, monitored, or treated as if it exists) are acceptable and can be coded in the inpatient setting, when documented at the
time of discharge.
Thank you,
Claudette Leo RN BSN
CDI Specialist
available via tiger text
Please use your independent medical judgment in providing your response.
--- NOTE | 2024-08-13 12:41 | PTCARENOTE ---
Patient discharged to home. Teaching provided, patient verbalized understanding. All belongings sent with patient. Escorted to main lobby
--- NOTE | 2024-08-13 14:48 | CM ---
spoke to pt in room, he is prev indep, lives with his in a 2 story home with 1 step to enter. he denies any dc plannin gneeds or dme's. plan is for dc to home when medically stable
== END 2024-08-13 12:43 | disposition home or self-care (01) | DRG 287 ==
LOC: IVU 20:57
PROVIDERS: Internal Medicine Cardiovascular Disease; Physician Assistant Medical; Student in an Organized Health Care Education/Training Program; ADMITTING PHYSICIAN Internal Medicine; ATTENDING PHYSICIAN Internal Medicine; CONSULT PHYSICIAN Internal Medicine Cardiovascular Disease; EMERGENCY PHYSICIAN Emergency Medicine; FAMILY PHYSICIAN Nurse Practitioner Family
PROC: B211YZZ Fluoroscopy of Multiple Coronary Arteries using Other Contrast (ICD-10-PCS; 2024-08-12)
PROC: 4A033BC Measurement of Arterial Pressure, Coronary, Percutaneous Approach (ICD-10-PCS; 2024-08-12)
PROC: B240ZZ3 Ultrasonography of Single Coronary Artery, Intravascular (ICD-10-PCS; 2024-08-12)
PROC: 4A023N7 Measurement of Cardiac Sampling and Pressure, Left Heart, Percutaneous Approach (ICD-10-PCS; 2024-08-12)
DX: I25.10 Atherosclerotic heart disease of native coronary artery without angina pectoris (principal); I47.19 Other supraventricular tachycardia; I10 Essential (primary) hypertension; E78.00 Pure hypercholesterolemia, unspecified; D72.829 Elevated white blood cell count, unspecified; I45.10 Unspecified right bundle-branch block; Z79.82 Long term (current) use of aspirin; Z79.899 Other long term (current) drug therapy; Z82.49 Family history of ischemic heart disease and other diseases of the circulatory system; Z88.1 Allergy status to other antibiotic agents
CPT/HCPCS: 71046; 80048; 80053; 80061; 82248; 82550; 83036; 83690; 84443; 84484; 85025; 85045; 85347; 85379; 85652; 85730; 86140; 86803; 92978; 93005; 93306; 93458; 93799; 96361; 96374; 96376; 99285; C1753; C1769; C1894; Q9967

== ENCOUNTER → 2024-11-24 12:52 | Outpatient (REF) | payer MEDICARE, SELFPAY | LOC: RCS 12:52 | PROVIDERS: ATTENDING PHYSICIAN Internal Medicine Cardiovascular Disease; FAMILY PHYSICIAN Nurse Practitioner Family | DX: R00.2 Palpitations (principal) | CPT/HCPCS: 93225; 93226 ==

== ENCOUNTER → 2025-02-26 09:46 | Outpatient (REF) | payer MEDICARE, SELFPAY | LOC: MRI 3T 09:46 | PROVIDERS: ATTENDING PHYSICIAN Urology; FAMILY PHYSICIAN Nurse Practitioner Family | DX: R97.20 Elevated prostate specific antigen [PSA] (principal) | CPT/HCPCS: 72197; A9575 ==